=== PATIENT | female | born 2000 | race Caucasian/White ===

== ENCOUNTER 2022-01-17 14:00 | Outpatient (RCR) | payer MEDICAID, SELFPAY | END 2022-06-14 13:44 | disposition home or self-care (01) | LOC: HO.PTWFD 14:00 | PROVIDERS: PCP Internal Medicine; Visit Provider Internal Medicine | DX: G89.29 Other chronic pain (principal) | CPT/HCPCS: 97110; 97162; 97530; 97535 ==